=== PATIENT | male | born 1980 | race Caucasian/White ===

== ENCOUNTER → 2018-10-19 | Outpatient (CLI) | payer BC, OTHER ==
--- NOTE | 2018-11-05 09:54 | TST ---
[facility] [address] [place] [address] TREADMI[employer] STRESS TEST Name: DEJUAN BRUNO Room #: [facility]#: [id number] ������������� Admission: 10/19/18 ������������� Attend Phys: Marvin Thibodeaux Discharge: ��� ������������� ��� Date of : 76 �������������������� �� Report #: [id number] �������� ��������������������������������������������[id number] THIS REPORT FOR: //name// APPROVED REPORT Patient Location: Out-Patient Room #: Stress Nurse: Meenakshi Brown RN The patient exercised according to the DALLIN protocol for 14 mins 27 seconds; achieving a work level of 17.5 METS. The resting heart rate of 70 bpm angela to a maximum heart rate of 190 bpm. This value represent 104 % of the maximal, age-predicted heart rate. The resting blood pressure of 110/55 mmHg, angela to a maximum blood pressure of 146/70 mmHg. The exercise test was stopped due to fatigue, maximal effort. Conclusion 1. Stress EKG response: Nonischemic. 2. Clinical response: Nonischemic 3. Exercise capacity. Superior achieving 17.5 METS. ��������������������������������������������� <ELECTRONICALLY SIGNED> ���������������������������������������� By: Marvin Thibodeaux MD ��������������������������������������������� 11/05/18 [id number] Marvin Thibodeaux MD /INF
== END ==
LOC: CV 12:58
DX: R00.2 Palpitations (principal)